=== PATIENT | female | born 1940 | race Caucasian/White ===

== ENCOUNTER 2016-05-26 07:31 | Day surgery (SDC) | payer MEDICARE, BC ==
[~2016-05-26 07:31] MED LIST: ALBUMIN HUMAN 200 ML IV PRN
[2016-05-26 08:16] LABS: HEMATOCRIT 32.5 % (36.0-47.0); HEMOGLOBIN 10.2 g/dL (12.0-15.5); HGB HCT DIFFERENCE -1.9; MEAN CORPUSCULAR HEMOGLOBIN 26.4 pg (27.0-33.4); MEAN CORPUSCULAR HGB CONC 31.4 g/dL (32.0-36.0); MEAN CORPUSCULAR VOLUME 84 fl (80-97); RED BLOOD COUNT 3.87 10^6/uL (3.72-5.28); WHITE BLOOD COUNT 7.1 10^3/uL (4.0-10.5)
[2016-05-26 08:33] LABS: BLOOD UREA NITROGEN 27 mg/dL (7-20)
[2016-05-26 08:40] LABS: PROTHROMBIN TIME 13.5 SEC (11.4-15.4)
[2016-05-26 08:41] LABS: PARTIAL THROMBOPLASTIN TIME 32.3 SEC (23.5-35.8)
[2016-05-26 15:44] VITALS: BP 112/60
== END 2016-05-26 12:40 | disposition home or self-care (01) ==
LOC: RAD 07:31
PROVIDERS: ATTEND Internal Medicine Gastroenterology
PROC: 0W9F3ZZ Drainage of Abdominal Wall, Percutaneous Approach (ICD-10-PCS; principal; 2016-05-26)
DX: K70.31 Alcoholic cirrhosis of liver with ascites (principal); K72.90 Hepatic failure, unspecified without coma; I12.9 Hypertensive chronic kidney disease with stage 1 through stage 4 chronic kidney disease, or unspecified chronic kidney disease; N18.9 Chronic kidney disease, unspecified; Z99.2 Dependence on renal dialysis; E11.9 Type 2 diabetes mellitus without complications; E78.5 Hyperlipidemia, unspecified; Z79.01 Long term (current) use of anticoagulants; Z79.899 Other long term (current) drug therapy; Z88.8 Allergy status to other drugs, medicaments and biological substances; I25.2 Old myocardial infarction
CPT/HCPCS: 36415; 84520; 82565; 82947; 85027; 85610; 85730; 49083; P9047

== ENCOUNTER 2016-07-03 07:32 | Day surgery (SDC) | payer MEDICARE, BC ==
[2016-07-03 08:30] LABS: PROTHROMBIN TIME 14.2 SEC (11.4-15.4)
[2016-07-03 08:31] LABS: PARTIAL THROMBOPLASTIN TIME 37.9 SEC (23.5-35.8)
[2016-07-03 08:49] LABS: HEMATOCRIT 30.3 % (36.0-47.0); HGB HCT DIFFERENCE -0.3; MEAN CORPUSCULAR HEMOGLOBIN 26.8 pg (27.0-33.4); MEAN CORPUSCULAR HGB CONC 32.9 g/dL (32.0-36.0); MEAN CORPUSCULAR VOLUME 82 fl (80-97); RED BLOOD COUNT 3.71 10^6/uL (3.72-5.28); RED CELL DISTRIBUTION WIDTH 15.2 % (11.5-14.0); WHITE BLOOD COUNT 6.7 10^3/uL (4.0-10.5)
[2016-07-03 12:09] VITALS: BP 106/78
== END 2016-07-03 12:00 | disposition home or self-care (01) ==
LOC: RAD 07:32
PROVIDERS: ATTEND Internal Medicine Gastroenterology
PROC: 0W9G3ZZ Drainage of Peritoneal Cavity, Percutaneous Approach (ICD-10-PCS; principal; 2016-07-03)
DX: R18.8 Other ascites (principal); K74.69 Other cirrhosis of liver; K76.6 Portal hypertension; K21.9 Gastro-esophageal reflux disease without esophagitis; Z79.01 Long term (current) use of anticoagulants
CPT/HCPCS: 36415; 82962; 84520; 85027; 85610; 85730; 49083; P9047

== ENCOUNTER 2016-07-26 10:57 | Day surgery (SDC) | payer MEDICARE, BC ==
[2016-07-26 11:35] LABS: HEMATOCRIT 32.7 % (36.0-47.0); HEMOGLOBIN 10.7 g/dL (12.0-15.5); HGB HCT DIFFERENCE -0.6; MEAN CORPUSCULAR HEMOGLOBIN 26.9 pg (27.0-33.4); MEAN CORPUSCULAR HGB CONC 32.8 g/dL (32.0-36.0); MEAN CORPUSCULAR VOLUME 82 fl (80-97); RED BLOOD COUNT 3.98 10^6/uL (3.72-5.28); RED CELL DISTRIBUTION WIDTH 15.4 % (11.5-14.0); WHITE BLOOD COUNT 6.7 10^3/uL (4.0-10.5)
[2016-07-26 11:47] LABS: PROTHROMBIN TIME 14.5 SEC (11.4-15.4)
[2016-07-26 11:48] LABS: PARTIAL THROMBOPLASTIN TIME 37.1 SEC (23.5-35.8)
[2016-07-26 12:00] LABS: BLOOD UREA NITROGEN 34 mg/dL (7-20); CREATININE RESULT 5.28 mg/dL (0.52-1.25)
[2016-07-26 16:21] VITALS: BP 99/66
== END 2016-07-26 16:00 | disposition home or self-care (01) ==
LOC: RAD 10:57
PROVIDERS: ATTEND Internal Medicine Gastroenterology
PROC: 0W9G3ZZ Drainage of Peritoneal Cavity, Percutaneous Approach (ICD-10-PCS; principal; 2016-07-26)
DX: R18.8 Other ascites (principal); K74.60 Unspecified cirrhosis of liver; K72.90 Hepatic failure, unspecified without coma; I12.9 Hypertensive chronic kidney disease with stage 1 through stage 4 chronic kidney disease, or unspecified chronic kidney disease; E11.22 Type 2 diabetes mellitus with diabetic chronic kidney disease; N18.9 Chronic kidney disease, unspecified; G47.30 Sleep apnea, unspecified; Z79.01 Long term (current) use of anticoagulants; Z88.8 Allergy status to other drugs, medicaments and biological substances
CPT/HCPCS: 36415; 82962; 84520; 82565; 85027; 85610; 85730; 49083; P9047

== ENCOUNTER 2016-08-28 07:33 | Day surgery (SDC) | payer MEDICARE, BC ==
[~2016-08-28 07:33] MED LIST changes: -ALBUMIN HUMAN 200 ML IV PRN; +ALBUMIN HUMAN 250 ML IV PRN
[2016-08-28 08:53] LABS: HEMATOCRIT 32.1 % (36.0-47.0); HEMOGLOBIN 10.5 g/dL (12.0-15.5); HGB HCT DIFFERENCE -0.6; MEAN CORPUSCULAR HEMOGLOBIN 26.8 pg (27.0-33.4); MEAN CORPUSCULAR HGB CONC 32.8 g/dL (32.0-36.0); MEAN CORPUSCULAR VOLUME 82 fl (80-97); RED BLOOD COUNT 3.93 10^6/uL (3.72-5.28); RED CELL DISTRIBUTION WIDTH 15.7 % (11.5-14.0); WHITE BLOOD COUNT 6.7 10^3/uL (4.0-10.5)
[2016-08-28 09:05] LABS: BLOOD UREA NITROGEN 40 mg/dL (7-20); CREATININE RESULT 5.44 mg/dL (0.52-1.25)
[2016-08-28 09:35] LABS: PROTHROMBIN TIME 14.4 SEC (11.4-15.4)
[2016-08-28 09:36] LABS: PARTIAL THROMBOPLASTIN TIME 33.7 SEC (23.5-35.8)
[2016-08-28 12:44] VITALS: BP 112/79
== END 2016-08-28 12:30 | disposition home or self-care (01) ==
LOC: RAD 07:33
PROVIDERS: ATTEND Internal Medicine Gastroenterology
PROC: 0W9G3ZZ Drainage of Peritoneal Cavity, Percutaneous Approach (ICD-10-PCS; principal; 2016-08-28)
DX: K70.31 Alcoholic cirrhosis of liver with ascites (principal); N18.6 End stage renal disease; Z79.01 Long term (current) use of anticoagulants; Z88.8 Allergy status to other drugs, medicaments and biological substances
CPT/HCPCS: 36415; 82962; 84520; 82565; 85027; 85610; 85730; 49083; P9047

== ENCOUNTER → 2016-09-27 | Outpatient (CLI) | payer MEDICARE, BC ==
[~2016-09-27] MED LIST changes: -ALBUMIN HUMAN 250 ML IV PRN; +REGADENOSON INJ 0.4 MG/5 ML DISP.SYRIN IV ONE
--- NOTE | 2016-09-29 17:53 | XCELERA REPORT ---
[address] [address] Transthoracic Echocardiogram Report Name: MARLINE VASQUEZ Age: 76 yrs Gender: Female : 1940 Patient Status: Outpatient Patient Location: RAD Study Date: 09/27/2016 10:12 AM Height: 66 in Weight: 170 lb BSA: 1.9 m2 Procedure: A complete two-dimensional transthoracic echocardiogram was performed (2D, M-mode, spectral and color flow Doppler). The study was technically difficult with many images being suboptimal in quality. Reason For Study: ABN EKG, CAD, CARDIOMYOPATHY Ordering Physician: HERI FISH Performed By: Mayela Lawler Interpretation Summary LV EF is 45%. Severe Pulm HTN Left ventricular systolic function is mildly reduced. There is mild concentric left ventricular hypertrophy. Doppler measurements suggest pseudonormalized left ventricular relaxation, which is associated with grade II/IV or mild to moderate diastolic dysfunction There is mild global hypokinesis of the left ventricle. The left ventricle is grossly normal size. The right ventricle is mildly dilated. The right ventricular systolic function is mildly reduced. The left atrium is moderately dilated. The right atrium is moderately dilated. There is a moderate amount of mitral regurgitation There is mild mitral stenosis There is a trace amount of aortic regurgitation There is mild aortic stenosis There is a moderate to severe amount of tricuspid regurgitation There is servere pulmonary hypertension by echo Best estimated RVSP is approximately 65-75 mm/Hg. The inferior vena cava appeared normal and decreased < 50% with respiration (RAP 10-15 mmHg) There is no pericardial effusion. MMode/2D Measurements \T\ Calculations RVDd: 3.3 cm LVIDd: 5.0 cmFS: 16.9 % Ao root diam: 3.0 cm IVSd: 1.1 cm LVIDs: 4.1 cmEDV(Teich): 116.8 ml LVPWd: 1.1 cmESV(Teich): 75.7 ml Ao root area: 7.2 cm2 EF(Teich): 35.2 % LA dimension: 4.6 cm LVOT diam: 1.8 cm LVOT area: 2.7 cm2 Doppler Measurements \T\ Calculations MV E max max: MV P1/2t max max: Ao V2 max: LV V1 max P.2 cm/sec 141.7 cm/sec 149.7 cm/sec 1.9 mmHg MV A max max: MV P1/2t: 62.3 msec Ao max PG: LV V1 max: 107.1 cm/sec MVA(P1/2t): 3.5 cm2 9.0 mmHg 68.5 cm/sec MV E/A: 1.3 MV dec slope: HARVEY(V,D): 1.2 cm2 LV dP/dt: 665.9 cm/sec2 649.0 mmHg/s PA V2 max: PI end-d max: TR max max: 82.4 cm/sec 131.7 cm/sec 409.9 cm/sec PA max PG: TR max P.7 mmHg 67.2 mmHg Left Ventricle The left ventricle is grossly normal size. There is mild concentric left ventricular hypertrophy. Left ventricular systolic function is mildly reduced. LV EF is 45%. Doppler measurements suggest pseudonormalized left ventricular relaxation, which is associated with grade II/IV or mild to moderate diastolic dysfunction. There is mild global hypokinesis of the left ventricle. Right Ventricle The right ventricle is mildly dilated. The right ventricular systolic function is mildly reduced. Atria The right atrium is moderately dilated. The left atrium is moderately dilated. Interarterial septum not well visualized and not well dopplered. Cannot comment on ASD/PFO presence. Mitral Valve There is mild mitral leaflet calcification. There is moderate to severe mitral annular calcification. There is mild mitral stenosis. There is a moderate amount of mitral regurgitation. Aortic Valve The aortic valve is moderately calcified. There is mild aortic stenosis. There is a trace amount of aortic regurgitation. Tricuspid Valve The tricuspid valve is not well visualized secondary to technical limitations. There is no tricuspid stenosis. There is a moderate to severe amount of tricuspid regurgitation. There is servere pulmonary hypertension by echo. Best estimated RVSP is approximately 65-75 mm/Hg. Pulmonic Valve The pulmonic valve is not well seen, but is grossly normal. There is no pulmonic valvular stenosis. There is a mild to moderate amount of pulmonic regurgitation. Great Vessels The aortic root is not well visualized but is probably normal size. The inferior vena cava appeared normal and decreased < 50% with respiration (RAP 10-15 mmHg). Effusions There is no pericardial effusion. : HERI FISH > William Hollingsworth
--- NOTE | 2016-10-07 19:26 | DRAGON STRESS TEST REPORT ---
Intravenous LexiScan Cardiolite stress test using single photon emmision computerized tomographic. Date of procedure: 09/11 ordering Provider: Dr. Kirsten Dill patient Status.: Outpatient: Indication: . Coronary artery disease, abnormal EKG coronary risk factors: " age and history of coronary artery disease Resting EKG: Sinus Rhythm. Diffuse ST-T changes, and lateral T inversion Stress EKG: No changes of ischemia. Reason for termination: Protocol. In spite of the drop in blood pressure the patient had no chest pain or discomfort and had no symptoms.. There was no arrhythmias seen. Conclusions: Normal EKG and hemodynamic response to IV LexiScan. Nuclear data: At rest the patient was given 12.68 millicuries of technetium 99 sestamibi injected intravenously. As per protocol rest non gated SPECT images were obtained. Subsequently the patient was given intravenous LexiScan at a dose of 0.4 mg in 5 mL intravenously, followed by flush with normal saline. Subsequently the stress dose of 38.4 millicuries of technetium 99 sestamibi was injected intravenously. As per protocol stress gated images were obtained. Not after Lexiscan the patient's systolic blood pressure was 90/53 went down to 88/70 and subsequently after bolus of IV normal blood pressure came up to 90/60 the patient was asymptomatic. Nuclear interpretation:: Review of images showed that this is a poor quality study, with there being liver and bowel contamination artifact of the inferior wall. . There are fixed perfusion defect in both the rest and stress images with a small area in the apical lateral wall which appears more pronounced in the stress images compared to rest images This lateral wall motion contraction and thickening is decreased. . Hence this represents an area of lateral wall myocardial infarction /scar with a small area of reversible ischemia in the apical lateral wall. There is a perfusion defect in both the rest and stress images of mild to moderate scar/myocardial infarction both rest and stress images involving the inferior wall, including the apical inferior wall.. The inferior wall has diminished motion contraction and thickening of the gated study. There seems to be moderate to severe decreased motion contraction in the in the stress images compared with the rest images. T. I D. ratio was normal at. 0.97 computer read rest, and stress left ventricular ejection fraction were 41 %, and 25 % respectively. Visually both Impression: 1. There is small area of scintigraphic evidence of LexiScan i induced myocardial ischemia in the apical lateral wall in the setting of lateral wall scar/SC 2. There is mild to moderate scintigraphic evidence of myocardial infarction/ scar. Involving the inferior wall including the apical inferior wall. 3. There is decreased motion and contraction in the stress images compared to the rest images. Recommendations: 1. Recommend aggressive medical treatment of coronary artery disease. The patient continues to have symptoms of angina and will recommend cardiac catheterization. 2. Recommend checking an echo for LV ejection fraction correlation. 3.Aaggressive risk factor modification, and treating the underlying co- morbidities MTDD
== END ==
LOC: RAD 06:48
PROVIDERS: ATTEND Specialist
DX: R94.31 Abnormal electrocardiogram [ECG] [EKG] (principal); I25.10 Atherosclerotic heart disease of native coronary artery without angina pectoris; I42.9 Cardiomyopathy, unspecified
CPT/HCPCS: 93306; 93017; 78452; A9500; J2785; Q9969

== ENCOUNTER 2016-09-29 07:34 | Day surgery (SDC) | payer MEDICARE, BC ==
[~2016-09-29 07:34] MED LIST changes: +ALBUMIN HUMAN 200 ML IV PRN; -REGADENOSON INJ 0.4 MG/5 ML DISP.SYRIN IV ONE
[2016-09-29 08:29] LABS: HEMATOCRIT 33.8 % (36.0-47.0); HEMOGLOBIN 10.8 g/dL (12.0-15.5); HGB HCT DIFFERENCE -1.4; MEAN CORPUSCULAR HEMOGLOBIN 26.2 pg (27.0-33.4); MEAN CORPUSCULAR HGB CONC 31.9 g/dL (32.0-36.0); MEAN CORPUSCULAR VOLUME 82 fl (80-97); RED BLOOD COUNT 4.12 10^6/uL (3.72-5.28); RED CELL DISTRIBUTION WIDTH 15.8 % (11.5-14.0); WHITE BLOOD COUNT 6.2 10^3/uL (4.0-10.5)
[2016-09-29 08:39] LABS: PARTIAL THROMBOPLASTIN TIME 33.6 SEC (23.5-35.8)
[2016-09-29 08:47] LABS: BLOOD UREA NITROGEN 40 mg/dL (7-20); GLUCOSE 227 mg/dL (75-110)
[2016-09-29 13:57] VITALS: BP 115/59
== END 2016-09-29 13:00 | disposition home or self-care (01) ==
LOC: RAD 07:34
PROVIDERS: ATTEND Internal Medicine Gastroenterology
PROC: 0W9F3ZZ Drainage of Abdominal Wall, Percutaneous Approach (ICD-10-PCS; principal; 2016-09-29)
DX: R18.8 Other ascites (principal); K74.60 Unspecified cirrhosis of liver; E11.22 Type 2 diabetes mellitus with diabetic chronic kidney disease; I12.9 Hypertensive chronic kidney disease with stage 1 through stage 4 chronic kidney disease, or unspecified chronic kidney disease; N18.9 Chronic kidney disease, unspecified; D63.1 Anemia in chronic kidney disease; Z99.2 Dependence on renal dialysis; E78.5 Hyperlipidemia, unspecified; E03.9 Hypothyroidism, unspecified; Z79.01 Long term (current) use of anticoagulants; Z79.899 Other long term (current) drug therapy; I25.2 Old myocardial infarction
CPT/HCPCS: 36415; 84520; 82565; 82947; 85027; 85610; 85730; 49083; P9047

== ENCOUNTER 2016-11-24 11:05 | Day surgery (SDC) | payer MEDICARE, BC ==
[2016-11-24 11:54] LABS: PROTHROMBIN TIME 14.4 SEC (11.4-15.4)
[2016-11-24 11:55] LABS: PARTIAL THROMBOPLASTIN TIME 37.1 SEC (23.5-35.8)
--- NOTE | 2016-11-24 15:17 | RADIOLOGY REPORT (SQ) ---
EXAM DESCRIPTION: U/S ABD PARACENTESIS COMPLETED DATE/TIME: 11/24/2016 2:46 pm REASON FOR STUDY: ASCITES COMPARISON None. LIMITATIONS: None. PROCEDURE: After obtaining informed consent, the patient was brought to the ultrasound suite. The p rocedure was performed with the patient on a gurney. Ultrasound was used to identify a prominent poc ket of ascites in the left lower quadrant. An appropriate access site was selected. The patient was prepped and draped in usual sterile fashion. The access site was anesthetized with 7 mL 1% lidocai ne. A Wtjk-Z-Xbiljqsc needle was advanced into the fluid. After aspiration of fluid the needle, the catheter was advanced off the needle into the fluid. A total of 6,000 mL of clear yellow fluid was removed. The patient tolerated the procedure well left the department in satisfactory condition. IMPRESSION: Successful ultrasound-guided paracentesis COMMENT: Patient medication list reviewed: Yes- Quality ID# [id number]:Eligible professional attests to doc umenting in the medical record they obtained, updated, or reviewed the patient's current medications. Quality ID #[id number]: The patient was prepped and draped using maximum sterile barrier technique including cap, mask, sterile gown, sterile gloves, a large sterile sheet, hand hygiene, and 2% Chlorhexidine fo r cutaneous antisepsis. When ultrasound is used, sterile ultrasound techniques are followed requiring sterile gel and sterile probes. Quality ID #[id number]: Final reports for procedures using fluoroscopy that document radiation exposure daisy ishmael, or exposure time and number of fluorographic images (if radiation exposure indices are not avail able) TECHNICAL DOCUMENTATION: JOB ID: [id number] [employer]- All Rights Reserved
[2016-11-24 15:56] VITALS: BP 105/57
== END 2016-11-24 15:30 | disposition home or self-care (01) ==
LOC: RAD 11:05
PROVIDERS: ATTEND Internal Medicine Gastroenterology
PROC: 0W9F3ZZ Drainage of Abdominal Wall, Percutaneous Approach (ICD-10-PCS; principal; 2016-11-24)
DX: R18.8 Other ascites (principal); K74.60 Unspecified cirrhosis of liver; E03.9 Hypothyroidism, unspecified; E78.5 Hyperlipidemia, unspecified; E11.22 Type 2 diabetes mellitus with diabetic chronic kidney disease; I12.9 Hypertensive chronic kidney disease with stage 1 through stage 4 chronic kidney disease, or unspecified chronic kidney disease; N18.9 Chronic kidney disease, unspecified; D63.1 Anemia in chronic kidney disease; Z99.2 Dependence on renal dialysis; I25.2 Old myocardial infarction; Z88.8 Allergy status to other drugs, medicaments and biological substances
CPT/HCPCS: 36415; 82947; 85610; 85730; 49083; P9047

== ENCOUNTER 2017-01-12 07:46 | Day surgery (SDC) | payer MEDICARE, BC ==
[2017-01-12 08:17] LABS: HEMATOCRIT 33.1 % (36.0-47.0); HEMOGLOBIN 11.2 g/dL (12.0-15.5); HGB HCT DIFFERENCE 0.5; MEAN CORPUSCULAR HEMOGLOBIN 28.3 pg (27.0-33.4); MEAN CORPUSCULAR HGB CONC 33.9 g/dL (32.0-36.0); MEAN CORPUSCULAR VOLUME 83 fl (80-97); RED BLOOD COUNT 3.97 10^6/uL (3.72-5.28); RED CELL DISTRIBUTION WIDTH 15.4 % (11.5-14.0); WHITE BLOOD COUNT 5.6 10^3/uL (4.0-10.5)
[2017-01-12 08:31] LABS: PARTIAL THROMBOPLASTIN TIME 35.4 SEC (23.5-35.8); PROTHROMBIN TIME 14.4 SEC (11.4-15.4)
[2017-01-12 08:38] LABS: BLOOD UREA NITROGEN 35 mg/dL (7-20); CREATININE RESULT 4.55 mg/dL (0.52-1.25); GLUCOSE 221 mg/dL (75-110)
[2017-01-12 11:19] VITALS: BP 108/62
--- NOTE | 2017-01-12 11:44 | RADIOLOGY REPORT (SQ) ---
EXAM DESCRIPTION: U/S ABD PARACENTESIS COMPLETED DATE/TIME: 01/12/2017 10:53 am REASON FOR STUDY: ASCITES COMPARISON Multiple previous LIMITATIONS: None. PROCEDURE: After obtaining informed consent, the patient was brought to the ultrasound suite. The p rocedure was performed with the patient on a gurney. Ultrasound was used to identify a prominent poc ket of ascites in the left lower quadrant. An appropriate access site was selected. The patient was prepped and draped in usual sterile fashion. The access site was anesthetized with 7 mL of mL 1% l idocaine. A Lmvo-J-Aefdjkzk needle was advanced into the fluid. After aspiration of fluid the needl e, the catheter was advanced off the needle into the fluid. A total of 4,800 mL of gifty colored flu id was removed. The patient tolerated the procedure well left the department in satisfactory conditio n. No testing on the fluid was sent. Patient received IV albumin post procedure IMPRESSION: Successful ultrasound-guided therapeutic paracentesis COMMENT: Patient medication list reviewed: Yes- Quality ID# [id number]:Eligible professional attests to doc umenting in the medical record they obtained, updated, or reviewed the patient's current medications. Quality ID #[id number]: The patient was prepped and draped using maximum sterile barrier technique including cap, mask, sterile gown, sterile gloves, a large sterile sheet, hand hygiene, and 2% Chlorhexidine fo r cutaneous antisepsis. When ultrasound is used, sterile ultrasound techniques are followed requiring sterile gel and sterile probes. Quality ID #[id number]: Final reports for procedures using fluoroscopy that document radiation exposure daisy ishmael, or exposure time and number of fluorographic images (if radiation exposure indices are not avail able) TECHNICAL DOCUMENTATION: JOB ID: [id number] [employer]- All Rights Reserved
== END 2017-01-12 11:35 | disposition home or self-care (01) ==
LOC: RAD 07:46
PROVIDERS: ATTEND Internal Medicine Gastroenterology
PROC: 0G9H3ZX Drainage of Right Thyroid Gland Lobe, Percutaneous Approach, Diagnostic (ICD-10-PCS; principal; 2017-01-12)
DX: K70.31 Alcoholic cirrhosis of liver with ascites (principal); I12.0 Hypertensive chronic kidney disease with stage 5 chronic kidney disease or end stage renal disease; E11.22 Type 2 diabetes mellitus with diabetic chronic kidney disease; N18.6 End stage renal disease; Z88.1 Allergy status to other antibiotic agents
CPT/HCPCS: 36415; 84520; 82565; 82947; 85027; 85610; 85730; 49083; P9047

== ENCOUNTER 2017-02-04 20:27 | Emergency (ER) | payer MEDICARE, BC ==
--- NOTE | 2017-02-04 20:34 | ER Document Report ---
ED Fall - General Chief Complaint: Fall Stated Complaint: FALL Time Seen by Provider: 02/04/17 20:34 Notes: The patient is a 76-year-old female, past medical history CAD (on Plavix and ASA ), ESRD ([facility]), chronic ascites, presents after a mechanical fall where she bent over and landed on her left hip and then hit the right side of her head. She noticed bleeding from her right scalp, but this is now controlled on arrival to the emergency room. She denies LOC, focal weakness, numbness, blurry vision, neck pain, chest pain, shortness of breath, syncope, abdominal pain, nausea or vomiting. TRAVEL OUTSIDE OF THE [place] IN LAST 30 DAYS: No - Related data Allergies/Adverse Reactions: atorvastatin calcium [From Lipitor] Allergy (Verified 01/12/17 08:14) Nausea levofloxacin [From Levaquin] Adverse Reaction (Verified 01/12/17 08:14) "pain down legs" Past Medical History - General Information source: Patient - Social History Smoking Status: Unknown if Ever Smoked Family History: Reviewed & Not Pertinent - Past Medical History Cardiac Medical History: Reports: Hx Congestive Heart Failure, Hx Coronary Artery Disease, Hx Heart Attack - 2012, Hx Hypercholesterolemia, Hx Hypertension Pulmonary Medical History: Reports: Hx Pneumonia Denies: Hx Asthma, Hx Bronchitis, Hx COPD Neurological Medical History: Denies: Hx Cerebrovascular Accident, Hx Seizures Endocrine Medical History: Reports: Hx Diabetes Mellitus Type 2 Renal/ Medical History: Reports: Hx End Stage Renal Disease GI Medical History: Denies: Hx Hepatitis, Hx Hiatal Hernia, Hx Ulcer Musculoskeltal Medical History: Denies Hx Arthritis Infectious Medical History: Denies: Hx Hepatitis Past Surgical History: Reports: Hx Appendectomy, Hx Cardiac Surgery - stent, Hx Cholecystectomy, Hx Hysterectomy, Hx Orthopedic Surgery - shoulder. Denies: Hx Mastectomy, Hx Open Heart Surgery, Hx Pacemaker - Immunizations Hx Diphtheria, Pertussis, Tetanus Vaccination: Yes Hx Pneumococcal Vaccination: 03/14/14 Review of Systems - Review of Systems Notes: REVIEW OF SYSTEMS: CONSTITUTIONAL: -fevers, -chills EENT: -eye pain, -difficulty swallowing, -nasal congestion CARDIOVASCULAR:-chest pain, -syncope. RESPIRATORY: -cough, -SOB GASTROINTESTINAL: -abdominal pain, - nausea, -vomiting, -diarrhea GENITOURINARY: -dysuria, -hematuria MUSCULOSKELETAL: +left hip pain, -back pain, -neck pain SKIN: +scalp laceration HEMATOLOGIC: +easy bleeding. LYMPHATIC: -swollen, enlarged glands. NEUROLOGICAL: -altered mental status or loss of consciousness, -headache, - neurologic symptoms PSYCHIATRIC: -anxiety, -depression. ALL OTHER SYSTEMS REVIEWED AND NEGATIVE. Physical Exam - Notes Notes: PHYSICAL EXAMINATION: GENERAL: Well-appearing, well-nourished and in no acute distress. HEAD: 3 cm left parietal laceration, normocephalic. EYES: Pupils equal round and reactive to light, extraocular movements intact, sclera anicteric, conjunctiva are normal. ENT: nares patent, oropharynx clear without exudates. Moist mucous membranes. NECK: Normal range of motion, supple without lymphadenopathy LUNGS: Breath sounds clear to auscultation bilaterally and equal. No wheezes rales or rhonchi. HEART: Regular rate and rhythm without murmurs ABDOMEN: Ascites present, nontender, normoactive bowel sounds. No guarding, no rebound. No masses appreciated. EXTREMITIES: Tenderness over left lateral hip, normal range of motion, no pitting or edema. No cyanosis. NEUROLOGICAL: Cranial nerves grossly intact. Normal speech, normal gait. Normal sensory and motor exams. PSYCH: Normal mood, normal affect. Course - Re-evaluation Re-evalutation: Patient's fall was purely mechanical in nature. No intracranial bleeds or skull fractures. Scalp laceration repaired with christal and instructed patient about signs of infection to watch out for. No fractures on hip x-ray. Given return precautions and she understands. - Diagnostic Test Radiology reviewed: Image reviewed, Reports reviewed Radiology results interpreted by me: Head CT: NAD Left hip x-ray: NAD Procedures - Laceration/Wound Repair Left Head Time completed: 21:44 Wound length (cm): 3 Wound's Depth, Shape: Into muscle Laceration pre-procedure: Sterile PPE donned, KiClegutierrez applied Anesthetic type: 1% Lidocaine Volume Anesthetic (mLs): 4 Wound explored: Clean Irrigated w/ Saline (mLs): 1,000 Wound Repaired With: Christal Number of Sutures: 5 Layer Closure?: No Post-procedure wound care: Sterile dressing applied Post-procedure NV exam normal: Yes Complications: No Discharge - Discharge Clinical Impression: Head injury Qualifiers: Encounter type: initial encounter Qualified Code(s): S09.90XA - Unspecified injury of head, initial encounter Laceration of scalp Qualifiers: Encounter type: initial encounter Qualified Code(s): S01.01XA - Laceration without foreign body of scalp, initial encounter Contusion of hip, left Qualifiers: Encounter type: initial encounter Qualified Code(s): S70.02XA - Contusion of left hip, initial encounter Condition: Stable Disposition: HOME, SELF-CARE Additional Instructions: LACERATION CARE: Your laceration has been sutured to keep the skin edges aligned during healing. The time of suture removal depends on the nature and location of your cut. Please follow the care instructions the doctor has outlined for you and return for further care, according to the schedule you've been given. Keep the wound and dressing clean. Unless you were told otherwise, you may shower daily, blotting the wound dry with a clean, unused towel. At other times, If the dressing gets wet or blood soaked, remove it and blot the wound dry, then reapply a new dressing. Unless you were instructed otherwise, dressings should be changed at least daily. If any signs of infection occur (swelling, redness, drainage, increasing tenderness, red streaks, tender lumps in the armpit or groin above the laceration, or fever), see the doctor immediately. SOAP CLEANSING: Gently wash the wound daily using a mild soap (like Ivory, Phisoderm, Neutrogena). Use warm water, rubbing gently until all debris, ooze, and crusting have been washed from the wound. Allow to dry briefly (about 10 minutes) after cleaning. Repeat this cleansing at least three times a day for the first two days and then once or twice a day. FOLLOW-UP CARE: Please return in 2 days for an infection check and dressing change. Your sutures should be removed in 5-7 days. To facilitate a timely removal of your sutures, you may return to the Emergency Department at [facility]. You do not need to call for an appointment, but the best time to come in for suture removal is early in the morning. If you have been referred to another physician for follow-up care, call that physicians office for an appointment as you were instructed. If you experience a significant change in your laceration, or if you are concerned there may be an infection (swelling, redness, drainage, increasing tenderness, red streaks, tender lumps in the armpit or groin above the laceration, or fever) , return to the Emergency Department immediately re-evaluation.
--- NOTE | 2017-02-04 21:08 | RADIOLOGY REPORT (SQ) ---
EXAM DESCRIPTION: CT HEAD WITHOUT COMPLETED DATE/TIME: 02/04/2017 8:57 pm REASON FOR STUDY: head injury COMPARISON: None. TECHNIQUE: Axial images acquired through the brain without intravenous contrast. Images reviewed wi th bone, brain and subdural windows. Images stored on PACS. All CT scanners at this facility use dose modulation, iterative reconstruction, and/or weight based d osing when appropriate to reduce radiation dose to as low as reasonably achievable (ALARA). [facility]: Dose Right [facility]: CareDose [facility]: Dose Right [facility]: Teradose 4D [facility]: [email or web address] RADIATION DOSE: Up-to-date CT equipment and radiation dose reduction techniques were employed. CTDIv ol: 49.0 mGy. DLP: 979 mGy-cm.mGy. LIMITATIONS: None. FINDINGS: VENTRICLES: Prominent. CEREBRUM: No masses. No hemorrhage. No midline shift. Areas of low density in the white matter mos t likely due to chronic micro-vascular ischemic change. No evidence for acute infarction. CEREBELLUM: No masses. No hemorrhage. No alteration of density. No evidence for acute infarction. EXTRAAXIAL SPACES: Age-related involutional change. No fluid collections. No masses. ORBITS AND GLOBE: No intra- or extraconal masses. Normal contour of globe without masses. CALVARIUM: No fracture. PARANASAL SINUSES: No fluid or mucosal thickening. SOFT TISSUES: No mass or hematoma. OTHER: No other significant finding. IMPRESSION: CHRONIC CHANGES OF ATROPHY AND MICROVASCULAR ISCHEMIA. NO ACUTE PROCESS. EVIDENCE OF ACUTE STROKE: NO. TECHNICAL DOCUMENTATION: JOB ID: [id number] Quality ID # [id number]: Final reports with documentation of one or more dose reduction techniques (e.g., Au tomated exposure control, adjustment of the mA and/or kV according to patient size, use of iterative reconstruction technique) 2010 [employer]- All Rights Reserved
--- NOTE | 2017-02-04 21:20 | RADIOLOGY REPORT (SQ) ---
EXAM DESCRIPTION: HIP LEFT AP/LATERAL COMPLETED DATE/TIME: 02/04/2017 9:12 pm REASON FOR STUDY: left hip injury COMPARISON: None. NUMBER OF VIEWS: Two views. TECHNIQUE: AP pelvis and additional frog-leg view of the left hip. LIMITATIONS: None. FINDINGS: MINERALIZATION: Osteopenia. LEFT HIP: No fracture or dislocation. No worrisome bone lesions. RIGHT HIP: No fracture or dislocation. No worrisome bone lesions. PUBIS AND ISCHIUM: No fracture. PELVIS: No fracture. SACRUM: No fracture or dislocation. No worrisome bone lesions. LOWER LUMBAR SPINE: No fracture or dislocation. No worrisome bone lesions. No significant disc disea se. SOFT TISSUES: No findings. OTHER: No other significant finding. IMPRESSION: NEGATIVE STUDY OF THE LEFT HIP AND PELVIS. NO RADIOGRAPHIC EVIDENCE OF ACUTE INJURY. TECHNICAL DOCUMENTATION: JOB ID: [id number] [employer]- All Rights Reserved
[2017-02-04] MEDS ORDERED: LIDOCAINE 1% INJ-PF (10 MG/ML) 30 ML SDV INFIL ONE (21:30)
[2017-02-04 22:17] VITALS: BP 114/67
== END 2017-02-04 22:28 | disposition home or self-care (01) ==
LOC: ER 20:27
PROC: 0HQ0XZZ Repair Scalp Skin, External Approach (ICD-10-PCS; principal; 2017-02-04)
DX: S09.90XA Unspecified injury of head, initial encounter (principal); S01.01XA Laceration without foreign body of scalp, initial encounter; S70.02XA Contusion of left hip, initial encounter; W19.XXXA Unspecified fall, initial encounter; E11.22 Type 2 diabetes mellitus with diabetic chronic kidney disease; I13.2 Hypertensive heart and chronic kidney disease with heart failure and with stage 5 chronic kidney disease, or end stage renal disease; I50.9 Heart failure, unspecified; N18.6 End stage renal disease; Z99.2 Dependence on renal dialysis; I25.10 Atherosclerotic heart disease of native coronary artery without angina pectoris; I25.2 Old myocardial infarction; E78.00 Pure hypercholesterolemia, unspecified; Z90.49 Acquired absence of other specified parts of digestive tract; Z90.710 Acquired absence of both cervix and uterus
CPT/HCPCS: 70450; 99284

== ENCOUNTER 2017-02-11 09:00 | Emergency (ER) | payer MEDICARE, BC ==
[2017-02-11 09:08] VITALS: BP 115/58
--- NOTE | 2017-02-11 09:34 | ER Document Report ---
ED Suture/Wound Recheck - General Chief Complaint: Staple Removal Stated Complaint: STAPLE REMOVAL Time Seen by Provider: 02/11/17 09:29 Mode of Arrival: Ambulatory Information source: Patient Notes: 76-year-old female presents to ED for staple removal from the back of her scalp. Patient was seen several days ago from a fall had x-rays to her hip which is still a little uncomfortable but is getting better and christal to the back of the head. Wound to the back and hit as well on his way to heal and has a scab on it no bleeding no signs of infection no drainage. TRAVEL OUTSIDE OF THE [place] IN LAST 30 DAYS: No - HPI Previous ED treatment: Laceration repair Quality of pain: Achy - To the hip none to the head Exacerbated by: Denies, Movement - Pain to the hip none to the head Relieved by: Denies - Related Data Allergies/Adverse Reactions: atorvastatin calcium [From Lipitor] Allergy (Verified 02/11/17 09:08) Nausea levofloxacin [From Levaquin] Adverse Reaction (Verified 02/11/17 09:08) "pain down legs" Past Medical History - General Information source: Patient - Social History Smoking Status: Never Smoker Cigarette use (# per day): No Chew tobacco use (# tins/day): No Smoking Education Provided: No Frequency of alcohol use: None Drug Abuse: None Lives with: Family Family History: Reviewed & Not Pertinent Patient has suicidal ideation: No Patient has homicidal ideation: No - Past Medical History Cardiac Medical History: Reports: Hx Congestive Heart Failure, Hx Coronary Artery Disease, Hx Heart Attack - 2013, Hx Hypercholesterolemia, Hx Hypertension Pulmonary Medical History: Reports: Hx Pneumonia Denies: Hx Asthma, Hx Bronchitis, Hx COPD EENT Medical History: Reports: None Neurological Medical History: Denies: Hx Cerebrovascular Accident, Hx Seizures Endocrine Medical History: Reports: Hx Diabetes Mellitus Type 2 Renal/ Medical History: Reports: Hx End Stage Renal Disease, Hx Peritoneal Dialysis Malignancy Medical History: Reports: None GI Medical History: Reports: None Musculoskeltal Medical History: Reports Hx Arthritis Skin Medical History: Reports None Psychiatric Medical History: Reports: None Traumatic Medical History: Reports: None Infectious Medical History: Denies: Hx Hepatitis Past Surgical History: Reports: Hx Appendectomy, Hx Cardiac Surgery - stent, Hx Cholecystectomy, Hx Hysterectomy, Hx Orthopedic Surgery - shoulder - Immunizations Hx Diphtheria, Pertussis, Tetanus Vaccination: Yes Hx Pneumococcal Vaccination: 03/14/14 Review of Systems - Review of Systems Constitutional: No symptoms reported EENT: No symptoms reported Cardiovascular: No symptoms reported Respiratory: No symptoms reported Gastrointestinal: No symptoms reported Genitourinary: No symptoms reported Female Genitourinary: No symptoms reported Musculoskeletal: No symptoms reported Skin: Other - Incision is healing well in the back of the scalp scab noted but no redness inflammation or drainage no signs of infection Hematologic/Lymphatic: No symptoms reported Neurological/Psychological: No symptoms reported -: Yes All other systems reviewed and negative Physical Exam - Vital signs Vitals: Temp Pulse Resp BP Pulse Ox 97.9 F 69 18 115/58 L 92 02/11/17 09:00 02/11/17 09:00 02/11/17 09:00 02/11/17 09:00 02/11/17 09:00 Interpretation: Normal - General General appearance: Appears well, Alert - HEENT Head: Other - Laceration to the back of scalp healing well scab noted no redness inflammation or infection. Eyes: Normal Pupils: PERRL - Respiratory Respiratory status: No respiratory distress Chest status: Nontender Breath sounds: Normal Chest palpation: Normal - Cardiovascular Rhythm: Regular Heart sounds: Normal auscultation Murmur: No - Abdominal Inspection: Normal Distension: No distension Bowel sounds: Normal Tenderness: Nontender Organomegaly: No organomegaly - Back Back: Normal, Nontender - Extremities General upper extremity: Normal inspection, Nontender, Normal color, Normal ROM , Normal temperature General lower extremity: Normal inspection, Nontender, Normal color, Normal ROM , Normal temperature, Normal weight bearing. No: Damien's sign - Neurological Neuro grossly intact: Yes Cognition: Normal Orientation: AAOx4 [place] Coma Scale Eye Opening: Spontaneous [place] Coma Scale Verbal: Oriented Anne Coma Scale Motor: Obeys Commands Anne Coma Scale Total: 15 Speech: Normal Motor strength normal: LUE, RUE, LLE, RLE Sensory: Normal - Psychological Associated symptoms: Normal affect, Normal mood - Skin Skin Temperature: Warm Skin Moisture: Dry Skin Color: Normal Location of irregularity: Scalp - 5 christal removed from the back of the scalp scab noted no redness inflammation or infection Course - Re-evaluation Re-evalutation: 02/11/17 09:34 5 christal removed with no difficulty from the back of scalp. Patient encouraged to use soap and water and bacitracin to the area told it is finished healed. Patient was discharged home to follow-up with primary doctor. - Vital Signs Vital signs: Temp Pulse Resp BP Pulse Ox 97.9 F 69 18 115/58 L 92 02/11/17 09:00 02/11/17 09:00 02/11/17 09:00 02/11/17 09:00 02/11/17 09:00 Discharge - Discharge Clinical Impression: Removal of staple Condition: Stable Disposition: HOME, SELF-CARE Instructions: Family Physicians / Practices Additional Instructions: Staple Removal Your christal have been removed. Please follow the care instructions the doctor/nurse practitioner has outlined for you. Unless instructed otherwise, you may get the wound wet and you do not need to continue bandaging it. You may begin to return to regular activities, but remember that it takes the inner tissues up to six weeks to fully heal. Therefore, do not subject the wound to significant forces or stress as it may re-open. See the doctor immediately if any signs of infection occur such as swelling, redness, drainage of pus, increasing tenderness, red streaks, tender lumps in the armpit or groin above the laceration, or fever. Unless you are instructed otherwise, you should not need to be seen again for any further evaluation of your wound. Acetaminophen Acetaminophen may be taken for pain relief or fever control. It's much safer than aspirin, offering a wider range of "safe" dosages. It is safe during . Some brand names are Tylenol, Panadol, Datril, Anacin 3, Tempra, and Liquiprin. Acetaminophen can be repeated every four hours. The following are maximum recommended dosages: WEIGHT Dose Drops Elixir Chewable( 80mg) (LBS.) drprs=droppers tsp=teaspoon 6 40 mg .4 ml (1/2) 6-11 80 mg .8 ml (full) 1/2 tsp 1 tab 12-16 120 mg 1 1/2 drprs 3/4 tsp 1 1/2 tabs 17-23 160 mg 2 drprs 1 tsp 2 tabs 24-30 240 mg 3 drprs 1 1/2 tsp 3 tabs 30-35 320 mg 2 tsp 4 tabs 36-41 360 mg 2 1/4 tsp 4 1 /2 tabs 42-47 400 mg 2 1/2 tsp 5 tabs 48-53 480 mg 3 tsp 6 tabs 54-59 520 mg 3 1/4 tsp 6 1 /2 tabs 60-64 560 mg 3 1/2 tsp 7 tabs 65-70 600 mg 3 3/4 tsp 7 1 /2 tabs 71-76 640 mg 4 tsp 8 tabs 77-82 720 mg 4 1/2 tsp 9 tabs 83-88 800 mg 5 tsp 10 tabs >89 pounds or adults 650 mg to 900 mg Acetaminophen can be repeated every four hours. Maximum daily dose not to exceed 4000 mg. These maximum recommended dosages are slightly higher than the dosages written on the product container, but these dosages are very safe and well below the toxic dosage for acetaminophen. FOLLOW-UP CARE: If you have been referred to a physician for follow-up care, call the physician s office for an appointment as you were instructed or within the next two days. If you experience worsening or a significant change in your symptoms, notify the physician immediately or return to the Emergency Department at any time for re-evaluation.
== END 2017-02-11 09:29 | disposition home or self-care (01) ==
LOC: ER 09:00
DX: Z48.02 Encounter for removal of sutures (principal)

== ENCOUNTER 2017-02-23 07:36 | Day surgery (SDC) | payer MEDICARE, BC ==
[~2017-02-23 07:36] MED LIST changes: -ALBUMIN HUMAN 200 ML IV PRN; +ALBUMIN HUMAN 50 ML IV PRN
[2017-02-23 08:44] LABS: BLOOD UREA NITROGEN 39 mg/dL (7-20); CREATININE RESULT 4.99 mg/dL (0.52-1.25)
[2017-02-23 09:07] LABS: PROTHROMBIN TIME 14.1 SEC (11.4-15.4)
[2017-02-23 09:08] LABS: HEMATOCRIT 33.2 % (36.0-47.0); HEMOGLOBIN 11.2 g/dL (12.0-15.5); HGB HCT DIFFERENCE 0.4; MEAN CORPUSCULAR HEMOGLOBIN 27.8 pg (27.0-33.4); MEAN CORPUSCULAR HGB CONC 33.7 g/dL (32.0-36.0); MEAN CORPUSCULAR VOLUME 82 fl (80-97); RED BLOOD COUNT 4.03 10^6/uL (3.72-5.28); RED CELL DISTRIBUTION WIDTH 16.2 % (11.5-14.0)
[2017-02-23 09:09] LABS: WHITE BLOOD COUNT 6.2 10^3/uL (4.0-10.5)
[2017-02-23] MEDS ORDERED: LIDOCAINE 1% INJ-PF (10 MG/ML) 30 ML SDV ONE (09:31)
--- NOTE | 2017-02-23 11:34 | RADIOLOGY REPORT (SQ) ---
EXAM DESCRIPTION: U/S ABD PARACENTESIS COMPLETED DATE/TIME: 02/23/2017 10:57 am REASON FOR STUDY: ASCITES COMPARISON 01/12/2017, 11/24/2016, 09/29/2016 LIMITATIONS: None. PROCEDURE: After obtaining informed consent, the patient was brought to the ultrasound suite. The p rocedure was performed with the patient on a gurney. Ultrasound was used to identify a prominent poc ket of ascites in the right lower quadrant. An appropriate access site was selected. The patient wa s prepped and draped in usual sterile fashion. The access site was anesthetized with 7.5 mL 1% lido girma. A Kjau-L-Bgpsivbw needle was advanced into the fluid. After aspiration of fluid the needle, the catheter was advanced off the needle into the fluid. A total of 5,000 mL of cloudy pink fluid wa s removed. The patient tolerated the procedure well left the department in satisfactory condition. Patient gives a history of being treated for peritonitis since the last paracentesis 01/12/2017. [place] se of fluid was cloudy and pink today, the specimen was sent the lab for cell count, Gram stain and c ulture/sensitivity IMPRESSION: Successful ultrasound-guided paracentesis Specimen of ascites fluid was sent to the lab today for cell count, Gram stain and culture/sensitivit y COMMENT: Patient medication list reviewed: Yes- Quality ID# [id number]:Eligible professional attests to doc umenting in the medical record they obtained, updated, or reviewed the patient's current medications. Quality ID #[id number]: The patient was prepped and draped using maximum sterile barrier technique including cap, mask, sterile gown, sterile gloves, a large sterile sheet, hand hygiene, and 2% Chlorhexidine fo r cutaneous antisepsis. When ultrasound is used, sterile ultrasound techniques are followed requiring sterile gel and sterile probes. Quality ID #[id number]: Final reports for procedures using fluoroscopy that document radiation exposure daisy ishmael, or exposure time and number of fluorographic images (if radiation exposure indices are not avail able) TECHNICAL DOCUMENTATION: JOB ID: [id number] [employer]- All Rights Reserved
[2017-02-23 12:01] VITALS: BP 116/71
[2017-02-23 12:19] LABS: FLUID APPEARANCE CLOUDY; FLUID RBC DILUENT USED NONE USED; FLUID RBC DILUTION FACTOR 1; FLUID RBC SIDE 1 245; FLUID RBC SIDE 2 253; FLUID TYPE PERITONEAL; TOTAL RBC SQUARES COUNTED FLD 5
== END 2017-02-23 12:02 | disposition home or self-care (01) ==
LOC: RAD 07:36
PROVIDERS: ATTEND Internal Medicine Gastroenterology
PROC: 0W9G3ZZ Drainage of Peritoneal Cavity, Percutaneous Approach (ICD-10-PCS; principal; 2017-02-23)
DX: K74.60 Unspecified cirrhosis of liver (principal); R18.8 Other ascites; K76.6 Portal hypertension; R94.5 Abnormal results of liver function studies; D64.9 Anemia, unspecified; I12.9 Hypertensive chronic kidney disease with stage 1 through stage 4 chronic kidney disease, or unspecified chronic kidney disease; E11.22 Type 2 diabetes mellitus with diabetic chronic kidney disease; N18.9 Chronic kidney disease, unspecified; I20.9 Angina pectoris, unspecified; E78.5 Hyperlipidemia, unspecified; G47.30 Sleep apnea, unspecified; E03.9 Hypothyroidism, unspecified; I25.2 Old myocardial infarction; Z99.2 Dependence on renal dialysis; Z79.1 Long term (current) use of non-steroidal anti-inflammatories (NSAID); Z79.82 Long term (current) use of aspirin; Z88.8 Allergy status to other drugs, medicaments and biological substances; Z79.899 Other long term (current) drug therapy; Z91.81 History of falling; Z79.4 Long term (current) use of insulin
CPT/HCPCS: 36415; 87205; 87070; 84520; 82565; 85027; 85610; 85730; 89050; 87075; 49083; P9047; J3490